=== PATIENT | male | born 1945 | race Hispanic/Latino ===

== ENCOUNTER 2020-09-16 09:48 | Emergency (ER) | payer BC ==
[~2020-09-16] VITALS: Ht 175.3 cm; Wt 69.4 kg
--- NOTE | 2020-09-16 20:59 | EKG ---
[facility] [address] [facility] [place], [place] [address] Signed Normal sinus rhythm Normal ECG No previous ECGs available Confirmed by CHRISTIANE PEREA MD [id number] on 09/16/2020 8:59:41 PM Electronically Signed By: CHRISTIANE PEREA MD 09/16/202058 PATIENT NAME: JERZY BOWIE Electrocardiogram DATE OF : 41 PHYSICIAN: CHRISTIANE PEREA MD REPORT #: [id number] REPORT IS CONFIDENTIAL AND NOT TO BE RELEASED WITHOUT AUTHORIZATION
== END 2020-09-16 17:07 | disposition short-term general hospital (02) ==
LOC: ED 09:48
DX: G93.9 Disorder of brain, unspecified (principal); Z20.822 Contact with and (suspected) exposure to COVID-19
CPT/HCPCS: 70450; 70496; 70498; 71045; 80053; 84484; 85025; 85610; 85730; 93005; 93010; 99285-25; C9803; J1100; J1953; Q9967; U0003